=== PATIENT | male | born 1995 | race Caucasian/White ===

== ENCOUNTER → 2019-03-08 | Outpatient (CLI) | payer OTHER ==
[2019-03-10 01:06] LABS: HBSAG SCREEN Negative (Negative); HEP A AB, IGM Negative (Negative); HEP B CORE AB, IGM Negative (Negative); HEP C VIRUS AB <0.1 (0.0-0.9); HIV SCREEN 4TH GENERATION WRFX Non Reactive (Non Reactive)
[2019-03-10 23:06] LABS: CHLAMYDIA TRACHOMATIS, NAA Negative (Negative); NEISSERIA GONORRHOEAE, NAA Negative (Negative)
== END | disposition home or self-care (01) ==
LOC: LAB 15:38 → LAB SHORT 15:38
PROVIDERS: Physician Assistant
DX: N34.1 Nonspecific urethritis (principal)
CPT/HCPCS: 80074; 86592; 87389; 87491; 87591

== ENCOUNTER 2023-09-04 18:11 | Observation (INO) | payer OTHER ==
[~2023-09-04] VITALS: Ht 170.2 cm; Wt 79.4 kg
[2023-09-04 19:10] LABS: BASOPHILS ABSOLUTE AUTO 0.05 K/mm3 (0.00-0.23); BASOPHILS PERCENT AUTO 0 % (0-2); EOSINOPHILS PERCENT AUTO 0 % (0-6); Hematocrit 45.4 % (37.0-53.0); Hemoglobin 15.7 g/dL (13.5-17.5); IMMATURE GRAN ABSOLUTE AUTO 0.08 K/mm3 (0.00-0.10); IMMATURE GRAN PERCENT AUTO 0 % (0-1); LYMPHOCYTES ABSOLUTE AUTO 0.83 K/mm3 (0.84-5.20); LYMPHOCYTES PERCENT AUTO 4 % (21-46); MONOCYTES ABSOLUTE AUTO 0.54 K/mm3 (0.16-1.47); MONOCYTES PERCENT AUTO 3 % (4-13); Mean Corpuscular HGB 29.5 pg (26.0-34.0); Mean Corpuscular HGB Conc 34.6 g/dL (31.5-36.5); Mean Corpuscular Volume 85 fL (80-100); Mean Platelet Volume 10.3 fL (9.1-12.4); NEUTROPHILS ABSOLUTE AUTO 18.62 K/mm3 (1.96-9.15); NEUTROPHILS PERCENT AUTO 93 % (41-73); Platelet Count 303 K/mm3 (150-400); RDW Coefficient Variation 12.5 % (11.7-14.2); RDW Standard Deviation 39.1 fL (35.1-46.3); Red Blood Cell Count 5.33 M/mm3 (4.30-5.90); White Blood Cell Count 20.12 K/mm3 (4.00-11.30)
[2023-09-04 19:12] LABS: Source, Urine Clean Catch
[2023-09-04 19:16] LABS: Appearance, Urine Clear (Clear); Bilirubin, Urine Neg (Neg); Blood, Urine Neg (Neg); Color, Urine Yellow (P-Yellow); Glucose Qualitative, Urine Neg (Neg); Ketones, Urine 4+ (Neg); Leukocyte Esterase, Urine Neg (Neg); Nitrite, Urine Neg (Neg); Protein, Urine 2+ (Neg); Urobilinogen, Urine 1+ (Normal)
[2023-09-04 19:26] LABS: Bacteria Few /hpf; Mucus Mod (0-Heavy); Red Blood Cells, Urine 0-2 /hpf (0-2); Squamous Epithelial Cells Rare /hpf (Few)
[2023-09-04 19:27] LABS: Albumin, Blood 4.1 g/dL (3.4-5.0); Bilirubin, Total 1.1 mg/dL (0.1-1.0); Bun/Creatinine Ratio 12.4 (12.0-20.0); Calcium, Blood 9.9 mg/dL (8.5-10.1); Creatinine, Blood 0.81 mg/dL (0.60-1.20); Potassium, Blood 3.7 mmol/L (3.5-5.5); Total Protein, Blood 8.1 g/dL (6.4-8.2)
[2023-09-05] VITALS (16 sets, daily range): BP systolic 115–137; BP diastolic 64–95
--- NOTE | 2023-09-05 05:25 | NUR ---
TRANSFER NOTE: PT ARRIVED VIA WHEEL CHAIR FROM ED. PT INDEPENDANT AND AMBULATED WELL TO BED. PT A&O X 4, NO SKIN BREAKDOWN. PT DENIES PAIN CURRENTLY. PT AT BEDSIDE BUT SHE WENT HOME AFTER ADMISSION. PT NPO, HE IS PLANNING TO HAVE APPENDECTOMY TODAY. 09/05/23 ZACHARIAH WALTERS RN
--- NOTE | 2023-09-05 18:00 | NUR ---
SHIFT SUMMARY PT AXO, PLEASANT AND COOPERATIVE WITH CARE. VSS. APPENDECTOMY THIS SHIFT. MEDICATED FOR PAIN X1 THIS SHIFT. IV PATENT AND INFUSING PER EMAR. PT TOLERATING CLEAR LIQUIDS AT THIS TIME. STATES HE HAS A POOR APPETITE. UP AD [place]. LAP SITES VISUALIZED AND DRESSINGS CLEAN AND DRY. BED IN LOW POSITION, CALL LIGHT WITHIN REACH.
[2023-09-06 00:34] VITALS: BP 110/74
[2023-09-06 04:31] VITALS: BP 122/73
--- NOTE | 2023-09-06 04:59 | NUR ---
SHIFT SUMMARY NOC PT A/O X 4. PLEASANT AND COOPERATIVE WITH CARE. POST OP LAPROSCOPIC APPENDECTOMY. VSS Q4H. 3 ABD INCISION SITES WITH 2X2 GAUZE AND TRANSPARANT DRESSING IN PLACE, INCISION SITE IN MIDDLE OF ABD HAS SLIGHT PINK STRIKING, BUT HAS NOT CHANGED SINCE INSPECTION AT SHIFT CHANGE. PT ONLY HAS C/O OF PAIN WHEN MOVING AND ABD MUSCLES USED. MEDICATED X 1 FOR PAIN. PT EXPECTED TO DISCHARGE HOME TODAY. PT IS CURRENTLY RESTING WITH BED IN LOWEST POSITION, AND CALL LIGHT WITHIN REACH.
[2023-09-06 05:23] LABS: BASOPHILS ABSOLUTE AUTO 0.01 K/mm3 (0.00-0.23); BASOPHILS PERCENT AUTO 0 % (0-2); EOSINOPHILS PERCENT AUTO 0 % (0-6); Hematocrit 40.3 % (37.0-53.0); Hemoglobin 13.5 g/dL (13.5-17.5); IMMATURE GRAN ABSOLUTE AUTO 0.04 K/mm3 (0.00-0.10); IMMATURE GRAN PERCENT AUTO 1 % (0-1); LYMPHOCYTES ABSOLUTE AUTO 1.08 K/mm3 (0.84-5.20); LYMPHOCYTES PERCENT AUTO 12 % (21-46); MONOCYTES ABSOLUTE AUTO 0.72 K/mm3 (0.16-1.47); MONOCYTES PERCENT AUTO 8 % (4-13); Mean Corpuscular HGB 29.1 pg (26.0-34.0); Mean Corpuscular HGB Conc 33.5 g/dL (31.5-36.5); Mean Corpuscular Volume 87 fL (80-100); Mean Platelet Volume 10.3 fL (9.1-12.4); NEUTROPHILS ABSOLUTE AUTO 6.86 K/mm3 (1.96-9.15); NEUTROPHILS PERCENT AUTO 79 % (41-73); Platelet Count 233 K/mm3 (150-400); RDW Coefficient Variation 12.5 % (11.7-14.2); RDW Standard Deviation 39.8 fL (35.1-46.3); Red Blood Cell Count 4.64 M/mm3 (4.30-5.90); White Blood Cell Count 8.71 K/mm3 (4.00-11.30)
[2023-09-06 05:54] LABS: Albumin, Blood 3.1 g/dL (3.4-5.0); Albumin/Globulin Ratio 0.9 (0.8-1.8); Bilirubin, Total 0.5 mg/dL (0.1-1.0); Bun/Creatinine Ratio 9.9 (12.0-20.0); Calcium, Blood 9.2 mg/dL (8.5-10.1); Creatinine, Blood 0.81 mg/dL (0.60-1.20); Globulin, Blood 3.6 g/dL (2.2-4.0); Potassium, Blood 4.2 mmol/L (3.5-5.5); Total Protein, Blood 6.7 g/dL (6.4-8.2)
[2023-09-06 07:34] VITALS: BP 122/73
[2023-09-06] MEDS ORDERED: HYDR1TAB94 PO (09:01)
--- NOTE | 2023-09-06 10:38 | NUR ---
SHIFT/DISCHARGE SUMMARY Pt remains A&)x4 this shift. VSS. Denies pain. OOB ambulating independently. # lap appendectomy sites CDI. Tolerating diet. Voiding without difficulty. All discharge instructions reviewed with pt and . Pt request to walk to lobby.
== END 2023-09-06 10:30 | disposition home or self-care (01) ==
LOC: ER 18:11 → MEDS 18:12 → ER 23:51 → MEDS 23:51 → EDBEDREQDT 09-05 01:29 → EDBEDREQ 09-05 01:29 → MEDS 09-05 03:52 → ENPENDDIS 09-06 08:36 → MEDS 09-06 10:30
PROVIDERS: Student in an Organized Health Care Education/Training Program; ADMIT Surgery
PROC: 0DTJ0ZZ Resection of Appendix, Open Approach (ICD-10-PCS; principal; 2023-09-05 11:15)
DX: K35.33 Acute appendicitis with perforation, localized peritonitis, and gangrene, with abscess (principal); D72.829 Elevated white blood cell count, unspecified; Z87.891 Personal history of nicotine dependence
CPT/HCPCS: 36415; 74177; 80053; 81001; 83605; 85025; 96361; 96374; 99285-25; A9270; J0295; J1100; J1885; J2250; J2405; J2704; J2710; J3010; J7030; J7050; J7120; Q9967